=== PATIENT | female | born 1945 | race Caucasian/White ===

== ENCOUNTER 2017-09-29 10:16 | Day surgery (SDC) | payer MEDICARE, BC ==
[~2017-09-29 10:16] MED LIST: Lactated Ringers 1,000 ML IV SCH; Sodium Chloride 0.9% 10 ML Syringe FLUSH PRN
--- NOTE | 2017-09-29 11:19 | PCM.HPR ---
H & P Addendum review - H & P Addendum Review Date of Original H & P: 09/20/17 Date Reviewed: 09/29/17 Time Reviewed: 11:18 Patient was Examined: No Changes
[2017-09-29] MEDS ORDERED: fentaNYL 100 MCG/2 ML SDV ONE ×2 (11:25→11:28)
[2017-09-29] MEDS ORDERED: Midazolam 1 MG/ML 2 ML SDV ONE ×2 (11:25→11:28)
[2017-09-29] MEDS ORDERED: Propofol 200 MG/20 ML SDV ONE ×2 (11:26→11:28)
--- NOTE | 2017-09-29 11:56 | PCM.OPNOTE ---
- General Post-Op/Procedure Note Date of Surgery/Procedure: 09/29/17 Operative Procedure(s): Colonoscopy with polypectomy Findings: polyp, tics Pre Op Diagnosis: Hematochezia Post-Op Diagnosis: Same Anesthesia Technique: MARIANO Primary Surgeon: Adonay Watt Anesthesia Provider: Blanca Chapa Pathology: polyp Complications: None Condition: Good
--- NOTE | 2017-09-29 13:52 | OR ---
Date of Procedure: 09/29/2017 PREOPERATIVE DIAGNOSES: 1. Recent hematochezia. 2. Diverticulosis. POSTOPERATIVE DIAGNOSES: 1. Sigmoid colon polyp. 2. Sigmoid diverticulosis. PROCEDURE: Colonoscopy with polypectomy. ANESTHESIA: IV sedation. PROCEDURE IN DETAIL: The patient was brought to the procedure room where she was placed on the left side, and IV sedation was administered. Digital rectal exam was performed which was normal. Colonoscope was inserted and advanced to the level of the cecum without difficulty. Cecal position was confirmed by identifying the appendiceal lumen and ileocecal valve. Prep was good, and surfaces were well visualized. Upon withdrawing the scope, the ascending, transverse, and descending colon were normal in appearance. Sigmoid colon had multiple diverticula present. At 40 cm, was a 7 mm sessile polyp, removed with a cautery snare and retrieved in the polyp trap. Rectum was normal, and retroflexion was normal. Air was removed, and the scope was withdrawn. The patient tolerated the procedure well and returned to recovery room in stable condition. The patient to follow up with DAVID Hooper, next week for review of pathology report. If the polyp is adenomatous, she should undergo a repeat colonoscopy again in 3 years. If the polyp is hyperplastic, she could wait 5 years until her next colon screening. BE ALONZO MD /[id number]
== END 2017-09-29 13:14 | disposition home or self-care (01) ==
LOC: LL.SDS 10:16
PROVIDERS: ATTEND Surgery
DX: K63.5 Polyp of colon (principal); K57.30 Diverticulosis of large intestine without perforation or abscess without bleeding; I10 Essential (primary) hypertension; Z88.8 Allergy status to other drugs, medicaments and biological substances; Z98.51 Tubal ligation status; Z79.899 Other long term (current) drug therapy; Z98.890 Other specified postprocedural states
CPT/HCPCS: 45385; J2250; J2704; J3010; J7120; 00810-QZ; 88305

== ENCOUNTER 2024-07-26 10:27 | Day surgery (SDC) | payer MEDICARE ==
[~2024-07-26 10:27] MED LIST changes: -Lactated Ringers 1,000 ML IV SCH; +Midazolam 1 MG/ML 2 ML SDV ONE; +Propofol 200 MG/20 ML SDV ONE
[2024-07-26] MEDS: Lactated Ringers 1,000 ML IV SCH (10:41)
== END 2024-07-26 11:51 | disposition home or self-care (01) ==
LOC: LL.SDS 10:27
PROVIDERS: ATTEND Surgery
DX: Z12.11 Encounter for screening for malignant neoplasm of colon (principal); D12.4 Benign neoplasm of descending colon; K57.30 Diverticulosis of large intestine without perforation or abscess without bleeding; Z86.010 Personal history of colon polyps; I10 Essential (primary) hypertension; E78.2 Mixed hyperlipidemia; Z79.899 Other long term (current) drug therapy
CPT/HCPCS: 45385; J2250; J2704; J7120

== ENCOUNTER 2024-08-23 18:17 | Emergency (ER) | payer MEDICARE ==
[2024-08-23] MEDS ORDERED: Mupirocin Oint 22 GM Tube TOP ONE (19:12)
[2024-08-23] MEDS: Bacitracin Oint 1 GM U/D Packet TOP ONE (19:25)
== END 2024-08-23 19:30 | disposition home or self-care (01) ==
LOC: LL.ED 18:17
DX: S50.812A Abrasion of left forearm, initial encounter (principal); I10 Essential (primary) hypertension; E78.00 Pure hypercholesterolemia, unspecified; E66.9 Obesity, unspecified; Z79.899 Other long term (current) drug therapy; Z88.8 Allergy status to other drugs, medicaments and biological substances; W55.03XA Scratched by cat, initial encounter
CPT/HCPCS: 99283